=== PATIENT | female | born 1995 | race Caucasian/White ===

== ENCOUNTER 2021-10-06 08:04 | Emergency (ER) | payer OTHER, SELFPAY ==
--- NOTE | 2021-10-06 08:07 | ED.URI ---
HPI - URI/Sore Throat General Chief Complaint: Upper Respiratory Infection Stated Complaint: sore throat Source: patient, family and RN notes reviewed Mode of arrival: ambulatory Limitations: no limitations History of Present Illness HPI Narrative: 26-year-old female presents to the [facility] with complaints of a sore throat since last night. Has a history of seasonal allergies. No fevers. No chest pain or abdominal pain. Pain increases when she swallows. No treatment prior to arrival. Has taken Zyrtec. MD elicited complaint: sore throat Related Data Home Medications Medication Instructions Recorded Confirmed albuterol sulfate 90 mcg INHALATION Q6-8H PRN 10/06/21 10/06/21 fluticasone furoate [Arnuity 100 mcg INHALATION DAILY 10/06/21 10/06/21 Ellipta] montelukast 10 mg PO DAILY 10/06/21 10/06/21 norethindrone-e.estradiol-iron 1 tablet PO DAILY 10/06/21 10/06/21 [Aurovela Fe 1-20 (28)] Allergies Allergy/AdvReac Type Severity Reaction Status Date / Time No Known Allergies Allergy Verified 10/06/21 08:16 Review of Systems Review of Systems: All systems reviewed & are unremarkable except as noted in HPI and below Constitutional: Constitutional: Reports no additional constitutional complaints, Denies chills, Denies fever(s) and Denies headache(s) Eyes: Eyes: Reports no additional eye complaints ENT: Reports as per HPI, Denies vertigo, Denies dizziness, Denies headache(s), Denies nasal congestion and Reports sore throat Cardiovascular: Cardiovascular: Reports no additional cardiovascular complaints, Denies chest pain, Denies syncope, Denies rapid heart rate and Denies dyspnea Respiratory: Respiratory: Reports no additional respiratory complaints, Denies cough, Denies dyspnea and Denies wheezing Gastrointestinal: Gastrointestinal: Reports no additional gastrointestinal complaints, Denies abdominal pain, Denies diarrhea, Denies nausea and Denies vomiting Musculoskeletal: Musculoskeletal: Reports no additional musculoskeletal complaints and Denies numbness Integumentary/Breasts: Skin/Breast: Reports system reviewed and no additional complaints, except as docu Neurologic: Reports system reviewed and no additional complaints, except as documented, Denies vertigo, Denies dizziness, Denies syncope, Denies headache(s), Denies focal weakness and Denies numbness Psychiatric: Psychiatric: Reports no additional psychiatric complaints Allergic/Immunologic: Allergic/Immunologic: Reports no additional allergic/immunologic complaints and Denies wheezing PMFSH Past Medical History Medical History (Updated 10/06/21 @ 08:43 by Joaquina Live APRN) Asthma Seasonal allergies Surgical History Surgical History (Updated 10/06/21 @ 08:20 by Joaquina Live APRN) H/O eye surgery Social History Social History (Updated 10/06/21 @ 08:21 by Joaquina Live APRN) Gender identity (if verbalized by the patient): Female Comments At the time of my signature, I reviewed and agree with the nursing past medical, surgical, social, and family history. There is no relevant family history pertinent to the patient complaint. Exam Const: General: cooperative, healthy appearing, no acute distress, well developed and alert Nutritional Appearance: well nourished Orientation/consciousness: patient oriented x3 Limitations: no limitations HENMT: Head: normal to inspection Ears: external ears normal, EAC's normal and Abnormal EAC present General nose exam: Normal nasal mucous membranes and turbinates present Face and sinus: normal facial exam and face symmetric Mouth: Yes Normal oral and palatal mucosa present, Yes lip normal and Yes tongue normal Throat: tonsils normal, uvula midline, posterior oropharynx abnormal and no uvular edema Eyes: Conjunctivae: conjunctivae normal Pupils: Equal, round and reactive pupils present Neck: Neck: normal visual inspection, no lymphadenopathy and no meningeal signs Chest: Chest palpation & i
[2021-10-06 08:11] VITALS: BP 137/78; PULSE 88; RESP 16; TEMP 37.1; O2SAT 100
[2021-10-07 08:33] LABS: SARS-CoV-2 RNA PCR Negative
== END 2021-10-06 08:47 | disposition home or self-care (01) ==
PROVIDERS: Emergency Provider Nurse Practitioner
DX: R09.82 Postnasal drip (principal); J02.9 Acute pharyngitis, unspecified; Z20.822 Contact with and (suspected) exposure to COVID-19; J45.909 Unspecified asthma, uncomplicated
CPT/HCPCS: 87081; 87880; 99213; C9803; G0463; U0003; U0005

== ENCOUNTER 2021-12-08 11:08 | Emergency (ER) | payer OTHER, SELFPAY ==
[2021-12-08 11:11] VITALS: BP 139/92; PULSE 68; RESP 16; TEMP 37.3; O2SAT 100
--- NOTE | 2021-12-08 11:14 | ED.SKABFB ---
HPI - Skin/Abscess/Foreign Bdy General Chief complaint: Skin/Abscess/Foreign Body Stated complaint: Rash all over Time Seen by Provider: 12/08/21 11:16 Source: patient and RN notes reviewed Mode of arrival: ambulatory Limitations: no limitations History of Present Illness HPI narrative: 26 year old female presents to express care with complaints of rash which started at around 0600 this morning which is itchy.Patient reports that it initially was some raised areas on her arms and she took 2 Benadryl and slept for awhile and when she awoke she noted it spreading. 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 She states that she wears long pants and lab coat at work, not sure if she was exposed to something at work. Patient states that she takes allergy shots for her seasonal allergies but did miss shot this week. Patient denies any shortness of breath or any difficulty swallowing, Red patchy hive appearing rash noted on legs which blanches and is itchy, areas on upper chest and neck and also few spots on her arms. Patient denies any new skin products. detergents, medications, or food, has not been working in [employer] or in [employer]. MD complaint: rash Onset (ago): hour(s) (5) Treatments prior to arrival: Benadryl Related Data Home Medications Medication Instructions Recorded Confirmed albuterol sulfate 90 mcg INHALATION Q6-8H PRN 10/06/21 12/08/21 fluticasone furoate [Arnuity 100 mcg INHALATION DAILY 10/06/21 12/08/21 Ellipta] montelukast 10 mg PO DAILY 10/06/21 12/08/21 norethindrone-e.estradiol-iron 1 tablet PO DAILY 10/06/21 12/08/21 [Aurovela Fe 1-20 (28)] Allergies Allergy/AdvReac Type Severity Reaction Status Date / Time No Known Allergies Allergy Verified 12/08/21 11:19 Review of Systems Review of Systems: CONSTITUTIONAL: Denies fever, chills, or sweats. EYES: Denies visual changes, redness, or discharge. ENT: Denies rhinorrhea, congestion, sore throat, or otalgia. CARDIOVASCULAR: Denies chest pain, palpitations, or edema. RESPIRATORY: Denies cough or dyspnea. GASTROINTESTINAL: Denies abdominal pain, nausea, vomiting, or diarrhea. GENITOURINARY: Denies dysuria or hematuria. SKIN: Positive for patchy red hive appearing rash especially on legs, upper chest and on neck with itching. MUSCULOSKELETAL: Denies back pain, joint pain, or myalgia. NEUROLOGIC: Denies headache, numbness, or weakness. PSYCHIATRIC: Denies anxiety or depression. All systems reviewed & are unremarkable except as noted in HPI and below PMFSH Past Medical History Medical History Asthma Seasonal allergies Surgical History Surgical History H/O eye surgery Social History Social History Gender identity (if verbalized by the patient): Female Comments At time of signature, agree with nursing past medical, surgical, social and family history. There is no relevant family history pertinent to the presenting complaint Exam Narrative: GENERAL: Well-appearing, well-nourished, and in no acute distress. HEAD: Normocephalic, atraumatic. EYES: PERRLA and EOMI. ENT: Nares clear, no rhinorrhea or epistaxis. Mucous membranes moist.TM's normal with good light reflex, throat pink with no tonsil swelling NECK: Supple.no lymphadenopathy CHEST: Clear to auscultation. No respiratory distress.SAO2 100% on room air, no tachypnea. HEART: Regular rate and rhythm. No murmur heard. Normal peripheral pulses. ABDOMEN: Soft, nontender, nondistended, normal active bowel sounds. EXTREMITIES: Normal range of motion. No edema. SKIN: Warm, dry,scattered patchy areas of hive type of rash noted predominantly to bilateral legs, some noted also to upper chest and neck and scattered raised area on arms which is itchy NEURO: No focal deficits. Alert and oriented x3. Course Course Level of Care: Express Care Visit Vit
[2021-12-08] MEDS: methylPREDNISolone ACETATE 80 MG/ML VIAL IM (11:28)
== END 2021-12-08 11:48 | disposition home or self-care (01) ==
PROVIDERS: Emergency Provider Registered Nurse; PCP Hospitalist
DX: L25.9 Unspecified contact dermatitis, unspecified cause (principal); J45.909 Unspecified asthma, uncomplicated
CPT/HCPCS: 96372; 99213; G0463; J1040

== ENCOUNTER 2023-06-28 16:56 | Emergency (ER) | payer OTHER, SELFPAY ==
[2023-06-28 17:04] VITALS: BP 135/89; PULSE 87; RESP 16; TEMP 37.7; O2SAT 100
--- NOTE | 2023-06-28 17:41 | ED.URI ---
HPI - URI/Sore Throat General Chief Complaint: Upper Respiratory Infection Stated Complaint: Sore Throat Time Seen by Provider: 06/28/23 17:20 Source: patient Mode of arrival: ambulatory Limitations: no limitations History of Present Illness HPI Narrative: Jonelle is a 27-year-old female patient presenting to the clinic today with complaints of a sore throat that began this morning. She denies any fever but has felt feverish and has had some chills. Did at home COVID test and it was negative. MD elicited complaint: fever and sore throat Related Data Home Medications Medication Instructions Recorded Confirmed albuterol sulfate 90 mcg/actuation 90 mcg inhalation Q6-8H PRN 10/06/21 06/28/23 aerosol inhaler Shortness Of Breath Or Wheezing montelukast 10 mg tablet 10 mg PO DAILY 10/06/21 06/28/23 Allergies Allergy/AdvReac Type Severity Reaction Status Date / Time No Known Allergies Allergy Verified 12/08/21 11:19 Review of Systems Review of Systems: Pertinent positives per HPI. Patient denies any rash, headache, visual changes, dizziness, cough, shortness of breath, chest pain, palpitations, nausea, vomiting, diarrhea, constipation, abdominal pain, or any urinary issues. PMFSH Past Medical History Medical History Asthma Seasonal allergies Surgical History Surgical History H/O eye surgery Social History Social History Gender identity (if verbalized by the patient): Female Comments At the time of my signature, I reviewed and agree with the nursing past medical, surgical, social, and family history. There is no relevant family history pertinent to the patient complaint. Exam Narrative: General: Well-developed, well nourished, in no apparent distress Head: Normocephalic, atraumatic Eyes: Pupils equally round and reactive to light bilaterally, EOM intact, sclera and conjunctive clear, no discharge, lids normal Ears: TMs intact and clear, ear canals clear, no drainage, grossly hearing normal. Nose: Nares patent, clear discharge, no inflammation, no sinus tenderness. Mouth: Oral pharynx red with bilateral tonsillar enlargement without lesions or masses, good dentition, MMM. Neck: Supple, trachea midline, enlargement of anterior cervical nodes, no thyroid masses or goiter palpable. Cardio: Regular rate and rhythm, s1 and s2 normal, no murmur appreciated. Resp: Clear to auscultation bilaterally, no rhonchi, rales, wheezing or rubs Course Course Emergency Course: Portions of this record may have been created with voice recognition software. Level of Care: Express Care Visit Vital Signs Vital signs: Vital Signs Temperature 37.7 C H 06/28/23 17:04 Pulse Rate 87 06/28/23 17:04 Respiratory Rate 16 06/28/23 17:04 Blood Pressure 135/89 06/28/23 17:04 Pulse Oximetry 100 06/28/23 17:04 Oxygen Delivery Room Air 06/28/23 17:04 Temperature 37.7 C H 06/28/23 17:04 Pulse Rate 87 06/28/23 17:04 Respiratory Rate 16 06/28/23 17:04 Blood Pressure 135/89 06/28/23 17:04 Pulse Oximetry 100 06/28/23 17:04 Oxygen Delivery Room Air 06/28/23 17:04 Vital signs reviewed MDM - URI/Sore Throat MDM Narrative Medical decision making narrative: At the time of visit patient is resting comfortably on exam table. Strep test was negative in the clinic today. I suspect patient has viral pharyngitis. Supportive measures were discussed with the patient she voiced understanding discharge instructions and agrees to treatment plan. Differential Diagnosis Differential diagnosis: Likely upper respiratory infection, otitis media, sinusitis, viral infection, bronchitis, influenza, pharyngitis and other (COVID) Lab Data Labs: Strep Screen Presumptive Negative
== END 2023-06-28 17:52 | disposition home or self-care (01) ==
PROVIDERS: Emergency Provider Nurse Practitioner Family; PCP Hospitalist
DX: J02.9 Acute pharyngitis, unspecified (principal); J45.909 Unspecified asthma, uncomplicated
CPT/HCPCS: 87081; 87880; 99213; G0463